=== PATIENT | female | born 2000 | race Caucasian/White ===

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

== ENCOUNTER 2018-02-05 16:37 | Emergency (ER) | payer MEDICAID ==
[2018-02-05] MEDS ORDERED: Azithromycin 250 MG Tab PO ONE (17:18)
[2018-02-05] MEDS ORDERED: cefTRIAXone 500 MG in Sodium Chloride 0.9% 50 ML IV ONE (17:18)
[2018-02-05] MEDS ORDERED: cefTRIAXone 500 MG in Lidocaine 1% 1 ML IM ONE (17:23)
--- NOTE | 2018-02-05 18:25 | EDM.PDOC ---
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 She states she's been diagnosed with herpes for the past but states she does not have any herpetic lesions active right now. She denies vaginal discharge or . Urinary complaints, back pain or abdominal pain. Review of systems: As per history of present illness and below otherwise all systems reviewed and negative. Past medical history: As per history of present illness and as reviewed below otherwise noncontributory. Surgical history: As per history of present illness and as reviewed below otherwise noncontributory. Social history: No reported history of drug or alcohol abuse. Family history: As per history of present illness and as reviewed below otherwise noncontributory. Physical exam: General: Well developed, well nourished in NAD HEENT: Atraumatic, normocephalic, pupils reactive, negative for conjunctival pallor or scleral icterus, mucous membranes moist, throat clear, neck supple, nontender, trachea midline. Lungs: Clear to auscultation, breath sounds equal bilaterally, chest nontender. Heart: S1S2, regular, negative for clicks, rubs, or JVD. Abdomen: Soft, nondistended, mild suprapubic tenderness no rebound or guarding. Negative for masses or hepatosplenomegaly. Negative for costovertebral tenderness. Pelvis: Stable nontender. Genitourinary: Pelvic exam showed no herpetic lesions in external or internal genitalia, no vaginal discharge she had marked cervical motion tenderness on manual exam Rectal: Deferred. Extremities: Atraumatic, negative for cords or calf pain. Neurovascular unremarkable. Neuro: Awake, alert, oriented. Cranial nerves II through XII unremarkable. Cerebellum unremarkable. Motor and sensory unremarkable throughout. Exam nonfocal. Diagnostics: [] test negative, wet prep negative GC and chlamydia pending Therapeutics: []Patient declined pain meds, ceftriaxone and Zithromax given the ED Impression: []PID Plan: []Ibuprofen for pain follow-up women[facility] clinic return if symptoms worsen or change or fevers occur. Definitive disposition and diagnosis as appropriate pending reevaluation and review of above. Vaginal Pain Score (Numeric/FACES): 7 - Related Data Allergies Allergy/AdvReac Type Severity Reaction Status Date / Time amoxicillin Allergy Hives Verified 02/05/18 17:21 Home Meds: Home Meds . [No Known Home Meds] 11/14/17 [History] Past Medical History - Past Health History Medical/Surgical History: Denies Medical/Surgical History Psychiatric History: Reports: Bipolar - Infectious Disease History Infectious Disease History: Reports: Herpes Social & Family History - Family History Family Medical History: Noncontributory - Tobacco Use Smoking Status *Q: Current Every Day Smoker Years of Tobacco use: 1 Packs/Tins Daily: 1 - Caffeine Use Caffeine Use: Reports: Coffee, Energy Drinks, Soda Caffeine Use Comment: 2 sodas a day - Recreational Drug Use Recreational Drug Use: No ED ROS GENERAL - Review of Systems Review Of Systems: ROS reveals no pertinent complaints other than HPI. ED EXAM, RENAL/ - Physical Exam Exam: See Below (See history of present illness) Course - Vital Signs Last Recorded V/S: Last Vital Signs Temp 98.3 F 02/05/18 16:49 Pulse 81 02/05/18 16:49 Resp 18 02/05/18 16:49 BP 114/62 02/05/18 16:49 Pulse Ox 98 02/05/18 16:49 - Orders/Labs/Meds Orders: Active Orders 24 hr Category Date Time Status Communication Order [RC] STAT Care 02/05/18 17:03 Active CHLAMYDIA AND GONORRHEA BY TMA Stat Lab 02/05/18 17:17 Received HCG QUALITATIVE,URINE [URCHEM] Stat Lab 02/05/18 16:54 Ordered Labs: Laboratory Tests 02/05/18 02/05/18 Range/Units 16:54 17:17 Urine HCG, Qual NEGATIVE (NEGATIVE) Mile species DNA NEGATIVE (NEGATIVE) Gardnerella DNA Probe NEGATIVE (NEGATIVE) Trichomonas DNA Probe NEGATIVE (NEGATIVE) Meds: Medications Discontinued Medications Generic Name Dose Route Start Last Admin Trade Name Freq PRN Reason Stop Dose Admin Azithromycin 1,000 mg 02/05/18 17:18 02/05/18 17:48 Zithromax PO 02/05/18 17:19 1,000 mg ONETIME ONE Administration Ceftriaxone Sodium 500 mg/ 50 mls @ 100 mls/hr 02/05/18 17:18 02/05/18 17:24 Sodium Chloride IV 02/05/18 17:47 Not Given ONETIME ONE Ceftriaxone Sodium 500 mg/ 1 mls @ 1 mls/sec 02/05/18 17:23 02/05/18 17:49 Lidocaine HCl IM 02/05/18 17:24 1 mls/sec ONETIME ONE Administration Departure - Departure Time of Disposition: 18:40 Disposition: Home, Self-Care 01 Condition: Good Clinical Impression: PID (acute pelvic inflammatory disease) - Discharge Information *PRESCRIPTION DRUG MONITORING PROGRAM REVIEWED*: Not Applicable Referrals: PCP,None [Primary Care Provider] - Forms: ED Department Discharge Additional Instructions: The following information is given to patients seen in the emergency department who are being discharged to home. This information is to outline your options for follow-up care. We provide all patients seen in our emergency department with a follow-up referral. The need for follow-up, as well as the timing and circumstances, are variable depending upon the specifics of your emergency department visit. If you don't have a primary care physician on staff, we will provide you with a referral. We always advise you to contact your personal physician following an emergency department visit to inform them of the circumstance of the visit and for follow-up with them and/or the need for any referrals to a consulting specialist. The emergency department will also refer you to a specialist when appropriate. This referral assures that you have the opportunity for follow-up care with a specialist. All of these measure are taken in an effort to provide you with optimal care, which includes your follow-up. Under all circumstances we always encourage you to contact your private physician who remains a resource for coordinating your care. When calling for follow-up care, please make the office aware that this follow-up is from your recent emergency room visit. If for any reason you are refused follow-up, please contact the [facility] Emergency Department at and asked to speak to the emergency department charge nurse. [facility] [address] [place] [id number] - My Orders Last 24 Hours: My Active Orders 02/05/18 16:54 HCG QUALITATIVE,URINE [URCHEM] Stat 02/05/18 17:03 Communication Order [RC] STAT 02/05/18 17:17 CHLAMYDIA AND GONORRHEA BY TMA Stat - Assessment/Plan Last 24 Hours: My Active Orders 02/05/18 16:54 HCG QUALITATIVE,URINE [URCHEM] Stat 02/05/18 17:03 Communication Order [RC] STAT 02/05/18 17:17 CHLAMYDIA AND GONORRHEA BY TMA Stat
[2018-02-05 18:52] VITALS: BP 109/80
== END 2018-02-05 18:45 | disposition home or self-care (01) ==
LOC: MW.ED 16:37
DX: N73.0 Acute parametritis and pelvic cellulitis (principal); F17.210 Nicotine dependence, cigarettes, uncomplicated; Z88.1 Allergy status to other antibiotic agents
CPT/HCPCS: 81025; 87480; 87491; 87510; 87591; 87660; 96372; 99283; A9270; J0696

== ENCOUNTER 2020-11-28 09:28 | Inpatient (IN) | payer MEDICAID ==
[2020-11-28] MEDS ORDERED: Water For Irrigation,Sterile 1,000 ML Container IRR PRN (10:12)
[2020-11-28] MEDS ORDERED: Nalbuphine 10 MG/1 ML Vial IVPUSH PRN (10:12)
[2020-11-28] MEDS ORDERED: Methylergonovine 0.2 MG/1 ML Amp IM PRN (10:12)
[2020-11-28] MEDS ORDERED: Misoprostol 200 MCG Tab PO PRN (10:12)
[2020-11-28] MEDS ORDERED: Ondansetron 4 MG/2 ML SDV IVPUSH PRN (10:12)
[2020-11-28] MEDS ORDERED: Carboprost Tromethamine 250 MCG/1 ML Amp IM PRN (10:12)
[2020-11-28] MEDS ORDERED: Butorphanol 1 MG/ML SDV IVPUSH PRN (10:12)
[2020-11-28] MEDS ORDERED: Sodium Chloride 0.9% 2.5 ML Syringe FLUSH PRN (10:12)
[2020-11-28] MEDS ORDERED: Sodium Chloride 0.9% 10 ML SDV IV PRN (10:12)
[2020-11-28] MEDS ORDERED: Tranexamic Acid 1,000 MG in Sodium Chloride 0.9% 100 ML IV PRN (10:12)
[2020-11-28] MEDS ORDERED: Lidocaine 1% 50 ML MDV INJECT PRN (10:12)
[2020-11-28] MEDS ORDERED: Sodium Chloride 0.9% 10 ML Syringe FLUSH PRN (10:12)
[2020-11-28] MEDS ORDERED: Oxytocin/0.9 % Sodium Chloride 30 UNIT/500 ML BAG IV SCH ×2 (10:15→20:00)
[2020-11-28] MEDS ORDERED: Misoprostol 50 MCG (1/2 of 100 MCG) Tab VAG SCH (10:30)
[2020-11-28] MEDS: Lactated Ringers 1,000 ML IV SCH ×3 (11:20→21:55)
[2020-11-28] MEDS: Clindamycin Phosphate in D5W 900 MG in Premix Bag 1 BAG IV SCH ×4 (11:20→19:53)
[2020-11-28] MEDS: Misoprostol 25 MCG (1/4 of 100 MCG) Tab VAG SCH ×2 (11:30→23:26)
[2020-11-28] MEDS ORDERED: Acetaminophen 500 MG Tab PO PRN (17:34)
[2020-11-28] MEDS ORDERED: Ropivacaine 0.2% PF 2 MG/ML 20 ML SDV ONE (20:57)
[2020-11-28] MEDS ORDERED: Ropivacaine HCl/PF 100 ML ONE (20:57)
[2020-11-29] MEDS: Lactated Ringers 1,000 ML IV SCH (02:11)
[2020-11-29] MEDS ORDERED: Terbutaline 1 MG/ML SDV SUBCUT ONE (03:16)
[2020-11-29] MEDS: Clindamycin Phosphate in D5W 900 MG in Premix Bag 1 BAG IV SCH ×2 (03:21)
[2020-11-29] MEDS ORDERED: Ropivacaine HCl/PF 100 ML ONE (06:52)
--- NOTE | 2020-11-29 10:09 | PCM.PREANE ---
Preanesthetic Assessment - Anesthesia/Transfusion/Family Hx Anesthesia History: No Prior Anesthesia Family History of Anesthesia Reaction: No - Physical Assessment NPO Status Date: 11/27/20 NPO Status Time: 12:00 Height: 1.65 m Weight: 98.43 kg ASA Class: 2 - Lab Values: Laboratory Last Values WBC 10.85 K/uL (4.0-11.0) 11/28/20 09:57 RBC 4.08 M/uL (4.30-5.90) L 11/28/20 09:57 Hgb 12.4 g/dL (12.0-16.0) 11/28/20 09:57 Hct 36.6 % (36.0-46.0) 11/28/20 09:57 MCV 89.7 fL (80.0-98.0) 11/28/20 09:57 MCH 30.4 pg (27.0-32.0) 11/28/20 09:57 MCHC 33.9 g/dL (31.0-37.0) 11/28/20 09:57 RDW Std Deviation 42.9 fl (28.0-62.0) 11/28/20 09:57 RDW Coeff of Eugenia 13 % (11.0-15.0) 11/28/20 09:57 Plt Count 300 K/uL (150-400) 11/28/20 09:57 MPV 10.30 fL (7.40-12.00) 11/28/20 09:57 Nucleated RBC % 0.0 /100WBC 11/28/20 09:57 Nucleated RBCs # 0 K/uL 11/28/20 09:57 Urine Color YELLOW 11/28/20 09:40 Urine Appearance CLEAR 11/28/20 09:40 Urine pH 8.5 (5.0-8.0) H 11/28/20 09:40 Ur Specific [place] 1.015 (1.001-1.035) 11/28/20 09:40 Urine Protein NEGATIVE mg/dL (NEGATIVE) 11/28/20 09:40 Urine Glucose (UA) NEGATIVE mg/dL (NEGATIVE) 11/28/20 09:40 Urine Ketones NEGATIVE mg/dL (NEGATIVE) 11/28/20 09:40 Urine Occult Blood NEGATIVE (NEGATIVE) 11/28/20 09:40 Urine Nitrite NEGATIVE (NEGATIVE) 11/28/20 09:40 Urine Bilirubin NEGATIVE (NEGATIVE) 11/28/20 09:40 Urine Urobilinogen 0.2 EU/dL (<2.0) 11/28/20 09:40 Ur Leukocyte Esterase TRACE (NEGATIVE) H 11/28/20 09:40 Blood Type A POSITIVE 11/28/20 09:57 Antibody Screen NEGATIVE 11/28/20 09:57 - Allergies Allergies/Adverse Reactions: Allergies Allergy/AdvReac Type Severity Reaction Status Date / Time amoxicillin Allergy Hives Verified 11/28/20 10:10 - Acknowledgements Anesthesia Type Planned: Epidural Pt an Appropriate Candidate for the Planned Anesthesia: Yes Alternatives and Risks of Anesthesia Discussed w Pt/Guardian: Yes Pt/Guardian Understands and Agrees with Anesthesia Plan: Yes PreAnesthesia Questionnaire - Past Health History Medical/Surgical History: Denies Medical/Surgical History HEENT History: Reports: None Cardiovascular History: Reports: None Respiratory History: Reports: None Gastrointestinal History: Reports: None Genitourinary History: Reports: None [employer]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 Musculoskeletal History: Reports: None Neurological History: Reports: None Psychiatric History: Reports: Bipolar Endocrine/Metabolic History: Reports: None Hematologic History: Reports: None Immunologic History: Reports: None Oncologic (Cancer) History: Reports: None Dermatologic History: Reports: None - Infectious Disease History Infectious Disease History: Reports: Herpes - Past Surgical History Cardiovascular Surgical History: Reports: None Oncologic Surgical History: Reports: None - HOME MEDS Home Medications: Home Meds Pnv No.95/Ferrous Fum/Folic AC [ Tablet] 1 each PO DAILY 11/28/20 [History] - CURRENT (IN HOUSE) MEDS Current Meds: Current Medications Acetaminophen (Acetaminophen 500 Mg Tab) 1,000 mg PO Q6H PRN PRN Reason: Abdominal Pain Last Admin: 11/28/20 18:02 Dose: 1,000 mg Documented by: Butorphanol Tartrate (Butorphanol 1 Mg/Ml Sdv) 1 mg IVPUSH Q1H PRN PRN Reason: Pain Carboprost Tromethamine (Carboprost Tromethamine 250 Mcg/1 Ml Amp) 250 mcg IM ASDIRECTED PRN PRN Reason: Post Hemorrhage Oxytocin/Sodium Chloride (Oxytocin 30 Unit/500 Ml-Ns) 30 unit in 500 mls @ 999 mls/hr IV TITRATE ZOILA Tranexamic Acid 1,000 mg/ (Sodium Chloride) 110 mls @ 660 mls/hr IV ONETIME PRN PRN Reason: Bleeding Clindamycin Phosphate 900 mg/ (Premix) 50 mls @ 100 mls/hr IV Q8H [facility] Last Admin: 11/29/20 03:21 Dose: 100 mls/hr Documented by: Lactated Ringer's (Ringers, Lactated) 1,000 mls @ 150 mls/hr IV ASDIRECTED [facility] Last Infusion: 11/29/20 05:15 Dose: 999 mls/hr Documented by: Oxytocin/Sodium Chloride (Oxytocin 30 Unit/500 Ml-Ns) 30 unit in 500 mls @ 2 mls/hr IV TITRATE ZOILA; Protocol Last Infusion: 11/29/20 07:10 Dose: 0 munits/min, 0 mls/hr Documented by: Lidocaine HCl (Lidocaine 1% 50 Ml Mdv) 50 ml INJECT ONETIME PRN PRN Reason: Laceration repair Methylergonovine Maleate (Methylergonovine 0.2 Mg/1 Ml Amp) 0.2 mg IM ASDIRECTED PRN PRN Reason: Post Hemorrhage Misoprostol (Misoprostol 200 Mcg Tab) 200 mcg PO ONETIME PRN PRN Reason: Post Hemorrhage Nalbuphine HCl (Nalbuphine 10 Mg/1 Ml Vial) 10 mg IVPUSH Q1H PRN PRN Reason: Pain (severe 7-10) Ondansetron HCl (Ondansetron 4 Mg/2 Ml Sdv) 4 mg IVPUSH Q4H PRN PRN Reason: Nausea/Vomiting Sodium Chloride (Sodium Chloride 0.9% 10 Ml Syringe) 10 ml FLUSH ASDIRECTED PRN PRN Reason: Keep Vein Open Sodium Chloride (Sodium Chloride 0.9% 2.5 Ml Syringe) 2.5 ml FLUSH ASDIRECTED PRN PRN Reason: Keep Vein Open Sodium Chloride (Sodium Chloride 0.9% 10 Ml Sdv) 10 ml IV ASDIRECTED PRN PRN Reason: IV Use Sterile Water (Water For Irrigation,Sterile 1,000 Ml Container) 1,000 ml IRR ASDIRECTED PRN PRN Reason: delivery Discontinued Medications Ropivacaine (Naropin 0.2%) Confirm Administered Dose 100 mls @ as directed .ROUTE .[facility]-MED ONE Stop: 11/28/20 20:58 Last Admin: 11/28/20 23:28 Dose: Not Given Documented by: Ropivacaine (Naropin 0.2%) Confirm Administered Dose 100 mls @ as directed .ROUTE .[facility]-MED ONE Stop: 11/29/20 06:53 Misoprostol (Misoprostol 50 Mcg (1/2 Of 100 Mcg) Tab) 25 mcg VAG Q4H ZOILA Misoprostol (Misoprostol 25 Mcg (1/4 Of 100 Mcg) Tab) 25 mcg VAG Q4H ZOILA Last Admin: 11/28/20 23:26 Dose: Not Given Documented by: Ropivacaine (Ropivacaine 0.2% Pf 2 Mg/Ml 20 Ml Sdv) Confirm Administered Dose 20 ml .ROUTE .STK-MED ONE Stop: 11/28/20 20:58 Last Admin: 11/28/20 23:28 Dose: Not Given Documented by: Terbutaline Sulfate (Terbutaline 1 Mg/Ml Sdv) 0.25 mg SUBCUT ONETIME ONE Stop: 11/29/20 03:17 Last Admin: 11/29/20 03:18 Dose: 0.25 mg Documented by:
[2020-11-29] MEDS ORDERED: Witch Hazel Medicated Pads 40/Jar TOP PRN (10:10)
[2020-11-29] MEDS ORDERED: Docusate Sodium 100 MG Cap PO PRN (10:10)
[2020-11-29] MEDS ORDERED: Ibuprofen 400 MG Tab PO PRN (10:10)
[2020-11-29] MEDS ORDERED: oxyCODONE 5 MG Tab PO PRN (10:10)
[2020-11-29] MEDS ORDERED: Ibuprofen 800 MG Tab PO PRN (10:10)
[2020-11-29] MEDS ORDERED: Acetaminophen 500 MG Tab PO PRN ×2 (10:10)
[2020-11-29] MEDS ORDERED: Bisacodyl 10 MG Supp RECTAL PRN (10:10)
[2020-11-29] MEDS ORDERED: Benzocaine/Menthol 20%-0.5% Spray 78 GM Cannister TOP PRN (10:10)
[2020-11-29] MEDS ORDERED: Lanolin 100% Cream 7 GM Tube TOP PRN (10:10)
--- NOTE | 2020-11-29 10:16 | PCM.SN.2 ---
- Free Text/Narrative Note: Anesthesia Note Called to replace epidural bag. Patient states not feeling contractions at all with heavy legs. Ropivicaine 0.2% bag 100ml hung with rate changed from 11 ml/hr to 9 ml/hr. RN notified. 0610 to 0625. 15 minutes spent with patient.
--- NOTE | 2020-11-29 19:22 | OR ---
SURGEON: Bernardo Dove MD DATE OF PROCEDURE: 11/29/2020 INDICATIONS FOR PROCEDURE: A 20-year-old G1, P0 at 41 weeks and 1 day admitted for late-term induction of labor. The patient has history of depression and anxiety with suicide attempt, which has been stable during this without any medications. Baby had left renal pylectasis which was resolved at 28weeks ultrasound. She is a smoker and continued 1/2ppd during this . She is GBS positive and has a penicillin allergy. Sensitivity showed the GBS was sensitive to clindamycin, which she received. She received had 1 dose of Cytotec and began having contractions every 1 to 3 minutes. A Flores balloon was then placed for cervical ripening, which was expelled after a few hours. Pitocin was started. However, the baby did not tolerate contractions very well and had some early and late decelerations. Therefore, Pitocin was turned off and heart rate recovered. She continued to have contractions on her own. She received an epidural with good pain control. She was AROMed with clear fluid. The patient progressed to fully dilated with the urge to push. PREOPERATIVE DIAGNOSIS: Andres intrauterine at 41 weeks and 1 day. POSTOPERATIVE DIAGNOSIS: Andres intrauterine at 41 weeks and 1 day. PROCEDURE PERFORMED: 1. Normal spontaneous vaginal delivery. 2. Repair of right periurethral laceration and a left sulcal laceration. ANESTHESIA: Epidural. ANESTHESIOLOGIST: Dr. Emmanuel Muñoz. FINDINGS: Viable male infant, scores of 9 and 9. weight 3720g. ESTIMATED BLOOD LOSS: 300 mL. DESCRIPTION OF PROCEDURE: The patient pushed with contractions for approximately 2 hours with good descent. The baby's heart rate tracing was reassuring with early decelerations. The head delivered in occiput anterior position over intact perineum, restituted ROT. Anterior shoulder delivered easily followed by posterior shoulder and remaining body. No nuchal cord was noted. The baby was placed on maternal chest and evaluated by awaiting nursery staff. The baby was pink, crying, and moving all extremities immediately after delivery. The umbilical cord was clamped and cut after 60 seconds and no longer pulsating. Umbilical cord gases were obtained. The placenta was removed with gentle traction on the umbilical cord and fundal massage. It was examined and found to be intact with 3-vessel cord. The vagina and perineum were examined, and she was noted to have a left sulcal laceration and a deep right periurethral laceration. Both were repaired with 3-0 Vicryl in typical fashion. Hemostasis was confirmed after the repair. Fundal massage was again performed, and the fundus was firm and below the umbilicus, and the bleeding had decreased to minimum. The patient tolerated the procedure well and was given care instructions. RAZIA SCHWAB /[id number] MTDD
--- NOTE | 2020-11-30 09:04 | PCM.PNPP ---
- General Info Date of Service: 11/30/20 Functional Status: Reports: Pain Controlled, Tolerating Diet, Ambulating, Urinating - Review of Systems General: Reports: No Symptoms HEENT: Reports: No Symptoms Pulmonary: Reports: No Symptoms Cardiovascular: Reports: No Symptoms Gastrointestinal: Reports: No Symptoms Genitourinary: Reports: No Symptoms Musculoskeletal: Reports: No Symptoms Skin: Reports: No Symptoms Neurological: Reports: No Symptoms Psychiatric: Reports: No Symptoms - Patient Data Vital Signs - Most Recent: Last Vital Signs Temp 36.1 C 11/30/20 06:00 Pulse 65 11/30/20 06:00 Resp 18 11/30/20 06:00 BP 103/59 L 11/30/20 06:00 Pulse Ox 98 11/29/20 19:33 Weight - Most Recent: 217 lb Lab Results - Last 24 Hours: Laboratory Results - last 24 hr 11/29/20 11/30/20 Range/Units 09:41 05:05 Hgb 10.4 L (12.0-16.0) g/dL Hct 31.2 L (36.0-46.0) % Cord ABG pH 7.174 L (7.18-7.38) Cord ABG Base Excess -9 (-10--2) Cord VBG pH 7.258 (7.25-7.45) Cord VBG Base Excess -6 (-10--2) Med Orders - Current: Current Medications Acetaminophen (Acetaminophen 500 Mg Tab) 1,000 mg PO Q6H PRN PRN Reason: Abdominal Pain Last Admin: 11/28/20 18:02 Dose: 1,000 mg Documented by: Acetaminophen (Acetaminophen 500 Mg Tab) 500 mg PO Q4H PRN PRN Reason: Pain Acetaminophen (Acetaminophen 500 Mg Tab) 1,000 mg PO Q4H PRN PRN Reason: Pain Benzocaine/Menthol (Benzocaine/Menthol 20%-0.5% [place] 78 Gm Cannister) 78 gm TOP ASDIRECTED PRN PRN Reason: Perineal Comfort Measure Last Admin: 11/29/20 14:26 Dose: 78 gm Documented by: Bisacodyl (Bisacodyl 10 Mg Supp) 10 mg RECTAL ONETIME PRN PRN Reason: Constipation Docusate Sodium (Docusate Sodium 100 Mg Cap) 100 mg PO BID PRN PRN Reason: Constipation Emollient Ointment (Lanolin 100% Cream 7 Gm Tube) 0 gm TOP ASDIRECTED PRN PRN Reason: Sore Nipples Oxytocin/Sodium Chloride (Oxytocin 30 Unit/500 Ml-Ns) 30 unit in 500 mls @ 2 mls/hr IV TITRATE ZOILA; Protocol Last Infusion: 11/29/20 07:10 Dose: 0 munits/min, 0 mls/hr Documented by: Ibuprofen (Ibuprofen 400 Mg Tab) 400 mg PO Q4H PRN PRN Reason: Pain Ibuprofen (Ibuprofen 800 Mg Tab) 800 mg PO Q6H PRN PRN Reason: Pain Oxycodone HCl (Oxycodone 5 Mg Tab) 5 mg PO Q2H PRN PRN Reason: Pain Sodium Chloride (Sodium Chloride 0.9% 10 Ml Syringe) 10 ml FLUSH ASDIRECTED PRN PRN Reason: Keep Vein Open Sodium Chloride (Sodium Chloride 0.9% 2.5 Ml Syringe) 2.5 ml FLUSH ASDIRECTED PRN PRN Reason: Keep Vein Open Sodium Chloride (Sodium Chloride 0.9% 10 Ml Sdv) 10 ml IV ASDIRECTED PRN PRN Reason: IV Use Witch Liliam (Witch Liliam Medicated Pads 40/Jar) 1 pad TOP ASDIRECTED PRN PRN Reason: comfort care Last Admin: 11/29/20 14:30 Dose: 1 pad Documented by: Discontinued Medications Butorphanol Tartrate (Butorphanol 1 Mg/Ml Sdv) 1 mg IVPUSH Q1H PRN PRN Reason: Pain Carboprost Tromethamine (Carboprost Tromethamine 250 Mcg/1 Ml Amp) 250 mcg IM ASDIRECTED PRN PRN Reason: Post Hemorrhage Oxytocin/Sodium Chloride (Oxytocin 30 Unit/500 Ml-Ns) 30 unit in 500 mls @ 999 mls/hr IV TITRATE ZOILA Tranexamic Acid 1,000 mg/ (Sodium Chloride) 110 mls @ 660 mls/hr IV ONETIME PRN PRN Reason: Bleeding Clindamycin Phosphate 900 mg/ (Premix) 50 mls @ 100 mls/hr IV Q8H ZOILA Last Admin: 11/29/20 03:21 Dose: 100 mls/hr Documented by: Lactated Ringer's (Ringers, Lactated) 1,000 mls @ 150 mls/hr IV ASDIRECTED ZOILA Last Infusion: 11/29/20 05:15 Dose: 999 mls/hr Documented by: Ropivacaine (Naropin 0.2%) Confirm Administered Dose 100 mls @ as directed .ROUTE .STK-MED ONE Stop: 11/28/20 20:58 Last Admin: 11/28/20 23:28 Dose: Not Given Documented by: Ropivacaine (Naropin 0.2%) Confirm Administered Dose 100 mls @ as directed .[facility] ONE Stop: 11/29/20 06:53 Lidocaine HCl (Lidocaine 1% 50 Ml Mdv) 50 ml INJECT ONETIME PRN PRN Reason: Laceration repair Methylergonovine Maleate (Methylergonovine 0.2 Mg/1 Ml Amp) 0.2 mg IM ASDIRECTED PRN PRN Reason: Post Hemorrhage Misoprostol (Misoprostol 200 Mcg Tab) 200 mcg PO ONETIME PRN PRN Reason: Post Hemorrhage Misoprostol (Misoprostol 50 Mcg (1/2 Of 100 Mcg) Tab) 25 mcg VAG Q4H ZOILA Misoprostol (Misoprostol 25 Mcg (1/4 Of 100 Mcg) Tab) 25 mcg VAG Q4H ZOILA Last Admin: 11/28/20 23:26 Dose: Not Given Documented by: Nalbuphine HCl (Nalbuphine 10 Mg/1 Ml Vial) 10 mg IVPUSH Q1H PRN PRN Reason: Pain (severe 7-10) Ondansetron HCl (Ondansetron 4 Mg/2 Ml Sdv) 4 mg IVPUSH Q4H PRN PRN Reason: Nausea/Vomiting Ropivacaine (Ropivacaine 0.2% Pf 2 Mg/Ml 20 Ml Sdv) Confirm Administered Dose 20 ml .ROUTE .STK-MED ONE Stop: 11/28/20 20:58 Last Admin: 11/28/20 23:28 Dose: Not Given Documented by: Sterile Water (Water For Irrigation,Sterile 1,000 Ml Container) 1,000 ml IRR ASDIRECTED PRN PRN Reason: delivery Terbutaline Sulfate (Terbutaline 1 Mg/Ml Sdv) 0.25 mg SUBCUT ONETIME ONE Stop: 11/29/20 03:17 Last Admin: 11/29/20 03:18 Dose: 0.25 mg Documented by: - Infant Interaction Disposition, : [place] at Bedside Interaction: Holding Infant Feeding: Bottle Fed - Recovery Exam Fundal Tone: Firm Fundal Level: 1 Fingerbreadths Below Umbilicus Fundal Placement: Midline Lochia Amount: Scant Lochia Color: Rubra/Red Perineum Description: Edematous, Hemorrhoids Episiotomy/Laceration: Approximated Bladder Status: Voiding - Exam General: Alert, Oriented, Cooperative, No Acute Distress HEENT: Pupils Equal, Pupils Reactive Neck: Supple, Trachea Midline, No JVD Lungs: Normal Respiratory Effort GI/Abdominal Exam: Soft, Non-Tender, No Distention Extremities: Normal Inspection, Normal Range of Motion, Non-Tender, No Pedal Edema Skin: Warm, Dry, Intact Neurological: No New Focal Deficit Psy/Mental Status: Alert, Normal Affect, Normal Mood - Problem List Review Problem List Initiated/Reviewed/Updated: Yes - My Orders Last 24 Hours: My Active Orders 11/29/20 10:10 Patient Status [ADT] Routine May Shower [RC] ASDIRECTED Up ad Adriana [RC] ASDIRECTED Vital Signs [RC] PER UNIT ROUTINE Acetaminophen [Tylenol Extra Strength] 1,000 mg PO Q4H PRN Acetaminophen [Tylenol Extra Strength] 500 mg PO Q4H PRN Benzocaine/Menthol [Dermoplast Pain Relief 20%-0.5% [place]] 78 gm TOP ASDIRECTED PRN Docusate Sodium [Colace] 100 mg PO BID PRN Ibuprofen [Motrin] 400 mg PO Q4H PRN Ibuprofen [Motrin] 800 mg PO Q6H PRN Lanolin [Lansinoh HPA] See Dose Instructions TOP ASDIRECTED PRN bisacodyL [Dulcolax] 10 mg RECTAL ONETIME PRN oxyCODONE 5 mg PO Q2H PRN witch Liliam [Tucks] 1 pad TOP ASDIRECTED PRN Assess Lochia [WOMSER] Per Unit Routine Assess Uterine Involution [WOMSER] Per Unit Routine Ice Therapy [OM.PC] Per Unit Routine Perineal Care [OM.PC] Per Unit Routine Peripheral IV Discontinue [OM.PC] Routine 11/29/20 10:11 Cooling Warming Measures [RC] ASDIRECTED - Assessment Assessment:: 20yo PPD1 s/p . Stable and recovering well. - Plan Plan:: - vital stable - ambulating and tolerating PO - bleeding light, Hgb stable, no s/s of anemia - bottlefeeding Plan for discharge tomorrow, baby will be monitored for 48hr due to GBS+.
[2020-12-01 08:39] VITALS: BP 113/67; PULSE 68
--- NOTE | 2020-12-01 08:43 | PCM.PNPP ---
- General Info Date of Service: 12/01/20 Subjective Update: Ambulating about room during rounds without difficulty. Pain well controlled with PO medications. Tolerating regular diet. Voiding without difficulty. Lochia decreasing. Bottle feeding baby, doing well. - General Info Date of Service: 12/01/20 - Patient Data Vital Signs - Most Recent: Last Vital Signs Temp 98.0 F 12/01/20 08:08 Pulse 68 12/01/20 08:08 Resp 17 12/01/20 08:08 BP 113/67 12/01/20 08:08 Pulse Ox 97 12/01/20 08:08 Weight - Most Recent: 217 lb Lab Results - Last 24 Hours: Laboratory Results - last 24 hr 11/28/20 Range/Units 09:57 RPR Non-Reac (Non-Reac) Med Orders - Current: Current Medications Acetaminophen (Acetaminophen 500 Mg Tab) 1,000 mg PO Q6H PRN PRN Reason: Abdominal Pain Last Admin: 11/28/20 18:02 Dose: 1,000 mg Documented by: Acetaminophen (Acetaminophen 500 Mg Tab) 500 mg PO Q4H PRN PRN Reason: Pain Acetaminophen (Acetaminophen 500 Mg Tab) 1,000 mg PO Q4H PRN PRN Reason: Pain Benzocaine/Menthol (Benzocaine/Menthol 20%-0.5% [place] 78 Gm Cannister) 78 gm TOP ASDIRECTED PRN PRN Reason: Perineal Comfort Measure Last Admin: 11/29/20 14:26 Dose: 78 gm Documented by: Bisacodyl (Bisacodyl 10 Mg Supp) 10 mg RECTAL ONETIME PRN PRN Reason: Constipation Docusate Sodium (Docusate Sodium 100 Mg Cap) 100 mg PO BID PRN PRN Reason: Constipation Emollient Ointment (Lanolin 100% Cream 7 Gm Tube) 0 gm TOP ASDIRECTED PRN PRN Reason: Sore Nipples Oxytocin/Sodium Chloride (Oxytocin 30 Unit/500 Ml-Ns) 30 unit in 500 mls @ 2 mls/hr IV TITRATE ZOILA; Protocol Last Infusion: 11/29/20 07:10 Dose: 0 munits/min, 0 mls/hr Documented by: Ibuprofen (Ibuprofen 400 Mg Tab) 400 mg PO Q4H PRN PRN Reason: Pain Ibuprofen (Ibuprofen 800 Mg Tab) 800 mg PO Q6H PRN PRN Reason: Pain Oxycodone HCl (Oxycodone 5 Mg Tab) 5 mg PO Q2H PRN PRN Reason: Pain Sodium Chloride (Sodium Chloride 0.9% 10 Ml Syringe) 10 ml FLUSH ASDIRECTED PRN PRN Reason: Keep Vein Open Sodium Chloride (Sodium Chloride 0.9% 2.5 Ml Syringe) 2.5 ml FLUSH ASDIRECTED PRN PRN Reason: Keep Vein Open Sodium Chloride (Sodium Chloride 0.9% 10 Ml Sdv) 10 ml IV ASDIRECTED PRN PRN Reason: IV Use Witch Liliam (Witch Liliam Medicated Pads 40/Jar) 1 pad TOP ASDIRECTED PRN PRN Reason: comfort care Last Admin: 11/29/20 14:30 Dose: 1 pad Documented by: Discontinued Medications Butorphanol Tartrate (Butorphanol 1 Mg/Ml Sdv) 1 mg IVPUSH Q1H PRN PRN Reason: Pain Carboprost Tromethamine (Carboprost Tromethamine 250 Mcg/1 Ml Amp) 250 mcg IM ASDIRECTED PRN PRN Reason: Post Hemorrhage Oxytocin/Sodium Chloride (Oxytocin 30 Unit/500 Ml-Ns) 30 unit in 500 mls @ 999 mls/hr IV TITRATE [facility] Tranexamic Acid 1,000 mg/ (Sodium Chloride) 110 mls @ 660 mls/hr IV ONETIME PRN PRN Reason: Bleeding Clindamycin Phosphate 900 mg/ (Premix) 50 mls @ 100 mls/hr IV Q8H [facility] Last Admin: 11/29/20 03:21 Dose: 100 mls/hr Documented by: Lactated Ringer's (Ringers, Lactated) 1,000 mls @ 150 mls/hr IV ASDIRECTED [facility] Last Infusion: 11/29/20 05:15 Dose: 999 mls/hr Documented by: Ropivacaine (Naropin 0.2%) Confirm Administered Dose 100 mls @ as directed .ROUTE .[facility]-MED ONE Stop: 11/28/20 20:58 Last Admin: 11/28/20 23:28 Dose: Not Given Documented by: Ropivacaine (Naropin 0.2%) Confirm Administered Dose 100 mls @ as directed .ROUTE .[facility] ONE Stop: 11/29/20 06:53 Lidocaine HCl (Lidocaine 1% 50 Ml Mdv) 50 ml INJECT ONETIME PRN PRN Reason: Laceration repair Methylergonovine Maleate (Methylergonovine 0.2 Mg/1 Ml Amp) 0.2 mg IM A SDIRECTED PRN PRN Reason: Post Hemorrhage Misoprostol (Misoprostol 200 Mcg Tab) 200 mcg PO ONETIME PRN PRN Reason: Post Hemorrhage Misoprostol (Misoprostol 50 Mcg (1/2 Of 100 Mcg) Tab) 25 mcg VAG Q4H ZOILA Misoprostol (Misoprostol 25 Mcg (1/4 Of 100 Mcg) Tab) 25 mcg VAG Q4H [facility] Last Admin: 11/28/20 23:26 Dose: Not Given Documented by: Nalbuphine HCl (Nalbuphine 10 Mg/1 Ml Vial) 10 mg IVPUSH Q1H PRN PRN Reason: Pain (severe 7-10) Ondansetron HCl (Ondansetron 4 Mg/2 Ml Sdv) 4 mg IVPUSH Q4H PRN PRN Reason: Nausea/Vomiting Ropivacaine (Ropivacaine 0.2% Pf 2 Mg/Ml 20 Ml Sdv) Confirm Administered Dose 20 ml .ROUTE .[facility]-MED ONE Stop: 11/28/20 20:58 Last Admin: 11/28/20 23:28 Dose: Not Given Documented by: Sterile Water (Water For Irrigation,Sterile 1,000 Ml Container) 1,000 ml IRR ASDIRECTED PRN PRN Reason: delivery Terbutaline Sulfate (Terbutaline 1 Mg/Ml Sdv) 0.25 mg SUBCUT ONETIME ONE Stop: 11/29/20 03:17 Last Admin: 11/29/20 03:18 Dose: 0.25 mg Documented by: - Interaction Infant Disposition, : [place] at Bedside Infant Interaction: Holding Infant Infant Feeding: Bottle Fed - Recovery Exam Fundal Tone: Firm Fundal Level: 1 Fingerbreadths Below Umbilicus Fundal Placement: Midline Lochia Amount: Scant Lochia Color: Rubra/Red Perineum Description: Other (see below) Other Perinuem Description: right periurethral and left sulcal lacerations with repair. Episiotomy/Laceration: Approximated Bladder Status: Voiding - Exam General: Alert Lungs: Normal Respiratory Effort Cardiovascular: Regular Rate GI/Abdominal Exam: Soft, Non-Tender Extremities: Normal Range of Motion, Non-Tender, No Pedal Edema Skin: Warm, Dry, Intact Neurological: No New Focal Deficit Psy/Mental Status: Normal Mood - Problem List Review Problem List Initiated/Reviewed/Updated: Yes - Assessment Assessment:: 20yo PPD2 s/p . Stable and recovering well. - Plan Plan:: - vital stable - ambulating and tolerating PO - bleeding light, Hgb stable, no s/s of anemia - bottlefeeding Plan for discharge today pending maternal/ status. Reviewed discharge instructions. Patient to follow up in 4 weeks for appointment.
== END 2020-12-01 11:50 | disposition home or self-care (01) | DRG 807 ==
LOC: MW.OB 09:28 → OBSVTOIN 11-29 10:10 → MW.OB 11-29 11:15
PROVIDERS: ADMIT Obstetrics & Gynecology; ATTEND Obstetrics & Gynecology
PROC: 0UQMXZZ Repair Vulva, External Approach (ICD-10-PCS; principal; 2020-11-29)
PROC: 10E0XZZ Delivery of Products of Conception, External Approach (ICD-10-PCS; 2020-11-29)
PROC: 0KQM0ZZ Repair Perineum Muscle, Open Approach (ICD-10-PCS; 2020-11-29)
PROC: 3E0P7VZ Introduction of Hormone into Female Reproductive, Via Natural or Artificial Opening (ICD-10-PCS; 2020-11-29)
PROC: 10907ZC Drainage of Amniotic Fluid, Therapeutic from Products of Conception, Via Natural or Artificial Opening (ICD-10-PCS; 2020-11-29)
PROC: 4A1HXCZ Monitoring of Products of Conception, Cardiac Rate, External Approach (ICD-10-PCS; 2020-11-29)
PROC: 3E0R3BZ Introduction of Anesthetic Agent into Spinal Canal, Percutaneous Approach (ICD-10-PCS; 2020-11-29)
PROC: 0U7C7ZZ Dilation of Cervix, Via Natural or Artificial Opening (ICD-10-PCS; 2020-11-29)
DX: O48.0 Post-term pregnancy (principal); Z37.0 Single live birth; O99.824 Streptococcus B carrier state complicating childbirth; Z3A.41 41 weeks gestation of pregnancy; Z88.0 Allergy status to penicillin; Z88.1 Allergy status to other antibiotic agents; O76 Abnormality in fetal heart rate and rhythm complicating labor and delivery; O71.82 Other specified trauma to perineum and vulva; O99.334 Smoking (tobacco) complicating childbirth; F17.210 Nicotine dependence, cigarettes, uncomplicated; O70.0 First degree perineal laceration during delivery
CPT/HCPCS: 36415; 51702; 59025; 59200; 59409; 81003; 82803; 85014; 85018; 85027; 86592; 86850; 86900; 86901; A9270-GY; J2590; J2795; J3105; J3490; J7120

== ENCOUNTER 2021-11-29 02:07 | Inpatient (IN) | payer MEDICAID ==
[2021-11-29] MEDS ORDERED: Ondansetron 4 MG/2 ML SDV IVPUSH PRN (02:24)
[2021-11-29] MEDS ORDERED: Butorphanol 1 MG/ML SDV IVPUSH PRN (02:51)
[2021-11-29] MEDS ORDERED: Sodium Chloride 0.9% 2.5 ML Syringe FLUSH PRN (02:51)
[2021-11-29] MEDS ORDERED: Carboprost Tromethamine 250 MCG/1 ML Amp IM PRN (02:51)
[2021-11-29] MEDS ORDERED: Sodium Chloride 0.9% 10 ML Syringe FLUSH PRN (02:51)
[2021-11-29] MEDS ORDERED: Sodium Chloride 0.9% 20 ML SDV IV PRN (02:51)
[2021-11-29] MEDS ORDERED: Misoprostol 200 MCG Tab PO PRN (02:51)
[2021-11-29] MEDS ORDERED: Methylergonovine 0.2 MG/1 ML Amp IM PRN (02:51)
[2021-11-29] MEDS ORDERED: Lidocaine 1% 50 ML MDV INJECT PRN (02:51)
[2021-11-29] MEDS ORDERED: Tranexamic Acid 1,000 MG in Sodium Chloride 0.9% 100 ML IV PRN (02:51)
[2021-11-29] MEDS ORDERED: Water For Irrigation,Sterile 1,000 ML Container IRR PRN (02:51)
[2021-11-29] MEDS ORDERED: Oxytocin/0.9 % Sodium Chloride 30 UNIT/500 ML BAG IV SCH (03:00)
[2021-11-29] MEDS: Lactated Ringers 1,000 ML IV SCH ×2 (03:33→04:48)
[2021-11-29] MEDS ORDERED: Ropivacaine HCl/PF 100 ML ONE (03:51)
[2021-11-29] MEDS ORDERED: fentaNYL 100 MCG/2 ML SDV ONE (03:51)
[2021-11-29] MEDS ORDERED: ePHEDrine 50 MG/ML SDV IVPUSH PRN ×2 (04:05)
[2021-11-29] MEDS ORDERED: Ropivacaine HCl/PF 200 MG in Premix Bag 1 BAG EPIDUR SCH (04:15)
[2021-11-29] MEDS ORDERED: Ibuprofen 800 MG Tab PO PRN (08:05)
[2021-11-29] MEDS ORDERED: Acetaminophen 500 MG Tab PO PRN (08:05)
[2021-11-29] MEDS ORDERED: Docusate Sodium 100 MG Cap PO PRN (08:05)
[2021-11-29] MEDS ORDERED: Witch Hazel Medicated Pads 40/Jar TOP PRN (08:05)
[2021-11-29] MEDS ORDERED: Bisacodyl 10 MG Supp RECTAL PRN (08:05)
[2021-11-29] MEDS ORDERED: Lanolin 100% Cream 7 GM Tube TOP PRN (08:05)
[2021-11-29] MEDS ORDERED: Benzocaine/Menthol 20%-0.5% Spray 78 GM Cannister TOP PRN (08:05)
[2021-11-29] MEDS ORDERED: oxyCODONE 5 MG Tab PO PRN (08:05)
[2021-11-30 08:05] VITALS: BP 103/63; PULSE 63
== END 2021-11-30 10:00 | disposition home or self-care (01) | DRG 807 ==
LOC: MW.OBCHECK 02:07 → MW.OB 02:09 → MW.OBCHECK 02:51 → OBSVTOIN 07:52 → MW.OB 12:12
PROVIDERS: ADMIT Obstetrics & Gynecology; ATTEND Obstetrics & Gynecology
PROC: 10E0XZZ Delivery of Products of Conception, External Approach (ICD-10-PCS; principal; 2021-11-29)
PROC: 3E0R3BZ Introduction of Anesthetic Agent into Spinal Canal, Percutaneous Approach (ICD-10-PCS; 2021-11-29)
DX: O80 Encounter for full-term uncomplicated delivery (principal); Z37.0 Single live birth; Z3A.39 39 weeks gestation of pregnancy; Z20.822 Contact with and (suspected) exposure to COVID-19; Z88.1 Allergy status to other antibiotic agents
CPT/HCPCS: 36415; 51701; 59025; 59409; 85014; 85018; 85027; 86592; 86850; 86900; 86901; A9270-GY; J2370; J2590; J2795; J3010; J7120; U0002

== ENCOUNTER 2022-10-02 22:10 | Emergency (ER) | payer MEDICAID ==
[2022-10-02] MEDS ORDERED: Ibuprofen 600 MG Tab PO ONE (23:11)
[2022-10-02 23:28] VITALS: BP 141/84; PULSE 73
== END 2022-10-02 23:27 | disposition home or self-care (01) ==
LOC: MW.ED 22:10
DX: S80.11XA Contusion of right lower leg, initial encounter (principal); Z88.0 Allergy status to penicillin; V86.52XA Driver of snowmobile injured in nontraffic accident, initial encounter
CPT/HCPCS: 73564; 73590; 99283; A9270; 99282

== ENCOUNTER 2022-10-28 11:11 | Emergency (ER) | payer MEDICAID ==
[2022-10-28 11:40] VITALS: BP 128/68; PULSE 84
== END 2022-10-28 13:03 | disposition home or self-care (01) ==
LOC: MW.ED 11:11
DX: S99.921A Unspecified injury of right foot, initial encounter (principal); Z88.0 Allergy status to penicillin; V86.92XA Unspecified occupant of snowmobile injured in nontraffic accident, initial encounter
CPT/HCPCS: 73630-26-RT; 73630-RT; 99282; 99283

== ENCOUNTER 2023-07-25 11:53 | Emergency (ER) | payer MEDICAID ==
[2023-07-25] MEDS ORDERED: Sodium Chloride 0.9% 1,000 ML IV ONE (12:09)
[2023-07-25] MEDS ORDERED: Ketorolac 30 MG/ML SDV IVPUSH ONE (12:20)
[2023-07-25 12:21] LABS: BASOPHILS ABSOLUTE AUTO 0.05 K/uL (0.00-0.20); BASOPHILS PERCENT AUTO 1.1 % (0.0-1.0); EOSINOPHILS ABSOLUTE AUTO 0.16 K/uL (0.00-0.45); EOSINOPHILS PERCENT AUTO 3.6 % (0.0-6.0); HEMATOCRIT 42.9 % (37.0-47.0); HEMOGLOBIN 14.7 g/dL (12.0-16.0); IMMATURE GRAN ABSOLUTE AUTO 0.01 K/uL (0.00-0.05); IMMATURE GRAN PERCENT AUTO 0.2 % (0.0-0.4); LYMPHOCYTES ABSOLUTE AUTO 1.78 K/uL (1.00-4.80); LYMPHOCYTES PERCENT AUTO 39.6 % (24.0-44.0); MEAN CORPUSCULAR HEMOGLOBIN 30.6 pg (28.0-32.0); MEAN CORPUSCULAR HGB CONC 34.3 g/dL (32.0-36.0); MEAN CORPUSCULAR VOLUME 89.4 fL (83.0-99.0); MONOCYTES ABSOLUTE AUTO 0.31 K/uL (0.00-0.80); MONOCYTES PERCENT AUTO 6.9 % (0.0-8.0); NEUTROPHILS ABSOLUTE AUTO 2.18 K/uL (1.80-7.70); NEUTROPHILS PERCENT AUTO 48.6 % (41.0-71.0); PLATELET COUNT,PLT 174 K/uL (150-400); WHITE BLOOD CELL COUNT,WBC 4.49 K/uL (3.9-11.3)
[2023-07-25] MEDS ORDERED: Acetaminophen 500 MG Tab PO ONE (12:21)
[2023-07-25 12:37] LABS: A/G RATIO 0.9 (0.9-1.6); ALBUMIN 3.3 g/dL (3.4-5.0); BILIRUBIN TOTAL 0.7 mg/dL (0.2-1.0); CALCIUM 8.8 mg/dL (8.5-10.1); CARBON DIOXIDE,CO2 26.3 mmol/L (21.0-32.0); CREATININE 1.1 mg/dL (0.6-1.0); EST CRCL DRUG DOSING (CG) 70.35 mL/min; POTASSIUM,K 3.6 mmol/L (3.5-5.1); PROTEIN TOTAL,TP 7.1 g/dL (6.4-8.2)
[2023-07-25 12:54] LABS: CORONAVIRUS COVID-19 NAA NEGATIVE (NEGATIVE); INFLUENZA A NAA NEGATIVE (NEGATIVE); INFLUENZA B NAA NEGATIVE (NEGATIVE); RESPIRATORY SYNCYTIAL VIR NAA NEGATIVE (NEGATIVE)
[2023-07-25 16:41] VITALS: BP 111/72; PULSE 84
[2023-07-25] MEDS ORDERED: Iopamidol 755 MG/ML 500 ML Multipack Bottle IVPUSH ONE (17:44)
== END 2023-07-25 16:40 | disposition home or self-care (01) ==
LOC: MW.ED 11:53
DX: B34.9 Viral infection, unspecified (principal); Z20.822 Contact with and (suspected) exposure to COVID-19; Z88.0 Allergy status to penicillin
CPT/HCPCS: 0241U; 36415; 71275; 80053; 84484; 84703; 85025; 85379; 93005; 96361; 96374; 99285; A9270; J1885; J7030; Q9967

== ENCOUNTER 2023-12-29 18:30 | Emergency (ER) | payer MEDICAID ==
[2023-12-29 19:03] VITALS: BP 114/78; PULSE 84
== END 2023-12-29 20:54 | disposition home or self-care (01) ==
LOC: MW.ED 18:30
DX: S63.501A Unspecified sprain of right wrist, initial encounter (principal); Z75.8 Other problems related to medical facilities and other health care; Z88.0 Allergy status to penicillin; Z79.899 Other long term (current) drug therapy; X58.XXXA Exposure to other specified factors, initial encounter
CPT/HCPCS: 29125; 73090-26-RT; 73090-RT; 73110-26-RT; 73110-RT; 99283; 99283-25